=== PATIENT | female | born 1975 | race Two or more races ===

== ENCOUNTER 2016-12-05 19:27 | Emergency (ER) | payer OTHER ==
[~2016-12-05] VITALS: Ht 175.3 cm; Wt 76.0 kg
[2016-12-05] MEDS ORDERED: ASPIRIN 81 MG TABLET CHEW PO ONE (20:00)
[2016-12-05 20:27] LABS: HEMATOCRIT 39.9 % (34.6-47.8); HEMOGLOBIN 13.2 g/dL (11.7-16.4); WHITE BLOOD COUNT 5.3 x10^3/uL (3.4-10)
[2016-12-05] MEDS ORDERED: PLEASE ENTER ALLERGIES MC SCH ×2 (20:30)
[2016-12-05 20:38] LABS: ASPARTATE AMINO TRANSFERASE 10 U/L (15-37); BLOOD UREA NITROGEN 16 mg/dL (7-18)
[2016-12-05 20:45] LABS: IS PT STATUS REG ER OR PRE ER? YES
[2016-12-05 21:21] VITALS: BP 133/77
[2016-12-05] MEDS ORDERED: HALO5TAB5 PO (21:31)
[2016-12-05] MEDS ORDERED: LITH600C PO (21:31)
[2016-12-05] MEDS ORDERED: TIZA4CAP2 PO (21:31)
[2016-12-05] MEDS ORDERED: QUET100T4 PO (21:31)
[2016-12-05] MEDS ORDERED: POLY17PO5 PO (21:31)
[2016-12-05] MEDS ORDERED: ROPI4TAB3 PO (21:31)
[2016-12-05] MEDS ORDERED: ROPI1TAB PO ×2 (21:31)
[2016-12-05] MEDS ORDERED: CALC-112 PO (21:31)
[2016-12-05] MEDS ORDERED: ONDA8TAB9 PO (21:31)
[2016-12-05] MEDS ORDERED: NALT50TA PO (21:31)
== END 2016-12-05 22:00 | disposition home or self-care (01) ==
LOC: ED 21:50
DX: R07.89 Other chest pain (principal); E10.65 Type 1 diabetes mellitus with hyperglycemia; Z79.4 Long term (current) use of insulin; Z88.5 Allergy status to narcotic agent; Z88.1 Allergy status to other antibiotic agents; Z88.8 Allergy status to other drugs, medicaments and biological substances; Z88.2 Allergy status to sulfonamides; Z88.3 Allergy status to other anti-infective agents
CPT/HCPCS: 36415; 71010; 80053; 83880; 84484; 84703; 85025; 85379; 93005; 99285